=== PATIENT | male | born 1955 | race Caucasian/White ===

== ENCOUNTER 2024-09-06 08:55 | Outpatient (RCR) | payer OTHER, SELFPAY ==
--- NOTE | 2024-09-06 09:32 | CTCFLWUP_ITS ---
[facility] [address] [place], [place] [address] FOLLOW-UP NOTE Date: 09/06/2024 MR#: [id number] Name: NEIL LUCERO : 1955 Dx: C83.30 Diffuse large B-cell lymphoma, unspecified site Identification. 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 Underwent 6 cycles of R-CHOP chemo completed 11/28/2021. Complete XRT to oropharyngeal region 3060 cGy 02/12/2022. Most recent PET scan 03/09/2024 stable carotid lymphadenopathy compared to prior PET of 07/03/2022 with no interval hypermetabolic lymphadenopathy. Examined patient's oral cavity neck with no sign of recurrence.\ I will see patient again in 6 months time. Electronically signed by: Richard Dixon M.D. 09/06/2024 9:30 AM
== END 2024-09-26 23:59 | disposition home or self-care (01) ==
LOC: SCTC 08:55
PROVIDERS: PCP Family Medicine; Referring Provider Family Medicine; Visit Provider Radiology Therapeutic Radiology
DX: Z08 Encounter for follow-up examination after completed treatment for malignant neoplasm (principal); Z85.72 Personal history of non-Hodgkin lymphomas; Z92.21 Personal history of antineoplastic chemotherapy; Z92.3 Personal history of irradiation
CPT/HCPCS: 99213; G0463

== ENCOUNTER 2024-11-02 10:50 | Outpatient (RCR) | payer OTHER, SELFPAY | END 2024-11-24 23:59 | disposition home or self-care (01) | LOC: SCTC 10:50 | PROVIDERS: PCP Pediatrics; Referring Provider Pediatrics; Visit Provider Nurse Practitioner Family | DX: Z08 Encounter for follow-up examination after completed treatment for malignant neoplasm (principal); Z85.72 Personal history of non-Hodgkin lymphomas; Z92.3 Personal history of irradiation; Z92.21 Personal history of antineoplastic chemotherapy | CPT/HCPCS: 99212; G0463 ==

== ENCOUNTER 2024-11-30 15:00 | Outpatient (RCR) | payer OTHER, SELFPAY | END 2024-12-25 23:59 | disposition home or self-care (01) | LOC: SCTC 15:00 | PROVIDERS: PCP Pediatrics; Referring Provider Pediatrics; Visit Provider Nurse Practitioner Family | DX: Z08 Encounter for follow-up examination after completed treatment for malignant neoplasm (principal); Z85.72 Personal history of non-Hodgkin lymphomas; Z92.3 Personal history of irradiation; Z92.21 Personal history of antineoplastic chemotherapy; D75.1 Secondary polycythemia; G47.33 Obstructive sleep apnea (adult) (pediatric); Z99.89 Dependence on other enabling machines and devices | CPT/HCPCS: 99212; G0463 ==

== ENCOUNTER → 2024-12-04 | Outpatient (CLI) | payer OTHER, SELFPAY ==
[2024-12-04 10:28] LABS: Misc Send Out* See Sep Rpt
[2024-12-04 11:28] LABS: Basophils % (Auto) 0 % (0-2.5); Eosinophils # (Auto) 0.2 Thou/mm3 (0.0-0.5); Eosinophils % (Auto) 2 % (0-10); Hematocrit 51.7 % (41.0-53.0); Hemoglobin 17.5 g/dL (13.5-16.0); Immature Granulocytes % (Auto) 0 % (0-0); Immature Granulocytes Auto 0.02 Thou/mm3 (0.00-0.00); Lymphocytes # (Auto) 1.1 Thou/mm3 (1.0-4.8); Lymphocytes % (Auto) 13 % (10-50); Mean Corpuscular HGB Conc 33.8 g/dl (31.0-37.0); Mean Corpuscular Hemoglobin 29.9 pg (25.0-35.0); Mean Corpuscular Volume 88 fL (80-100); Monocytes # (Auto) 0.6 Thou/mm3 (0.0-0.8); Monocytes % (Auto) 7 % (0-12); Neutrophils # (Auto) 6.6 Thou/mm3 (1.8-7.7); Neutrophils % (Auto) 78 % (37-80); Nucleated Red Blood Cell % 0 /100 WBC (0); Platelet Count 234 Thou/mm3 (140-440); RDW Standard Deviation 42.1 fL (35.1-43.9); Red Blood Count 5.86 Miln/mm3 (4.50-5.90); White Blood Count 8.5 Thou/mm3 (3.8-10.6)
[2024-12-04 12:05] LABS: Alanine Aminotransferase 21 U/L (10-49); Albumin, Serum 4.4 gm/dL (3.4-4.8); Albumin/Globulin Ratio 2.3 (1.2-2.2); Alkaline Phosphatase 96 U/L (46-116); Anion Gap 7 (7-16); Aspartate Amino Transferase 24 U/L (0-34); BUN/Creatinine Ratio 19 Ratio (12-20); Bilirubin,Total 0.7 mg/dL (0.3-1.2); Blood Urea Nitrogen 19 mg/dL (9-23); Calcium 9.7 mg/dL (8.3-10.6); Calcium (Corrected) 9.7 mg/dL (8.5-10.1); Carbon Dioxide 24.7 mMol/L (20.0-31.0); Chloride 108 mMol/L (98-107); Globulin 1.9 gm/dL (2.3-3.5); Glucose 102 mg/dL (74-106); Osmolality,Calculated 281 (275-295); Potassium 4.6 mMol/L (3.4-5.1); Sodium 140 mMol/L (136-145); Total Protein 6.3 gm/dL (5.7-8.2); eGFR > 60 See Note
[2024-12-11 07:16] LABS: Erythropoietin (EPO)* 12.6 mIU/mL (2.6-18.5)
== END | disposition home or self-care (01) ==
PROVIDERS: PCP Family Medicine; Referring Provider Nurse Practitioner Family; Visit Provider Nurse Practitioner Family
DX: C83.30 Diffuse large B-cell lymphoma, unspecified site (principal)
CPT/HCPCS: 36415; 80053; 81219; 81270; 81279; 81339; 82668; 85025

== ENCOUNTER → 2025-01-04 | Outpatient (CLI) | payer OTHER, SELFPAY ==
--- NOTE | 2025-01-04 09:00 | XR_ITS ---
Examination: CT chest with intravenous contrast CT abdomen with intravenous contrast CT pelvis with intravenous contrast 2-D coronal and sagittal reconstructions Time of exam: January 04, 2025 0901 hrs. Comparison PET/CT scan March 09, 2024, CT chest August 18, 2023 Indications: Diagnosis diffuse large B-cell lymphoma 2020 diagnosis CTDI: vol (mGy) : 10.7 DLP: (mGycm): 870 Technique: Multiple axial images of the chest, abdomen and pelvis with intravenous contrast, 3.0 mm slice thickness. Images obtained post intravenous injection Isovue 370 60 cc. 2-D sagittal and coronal reconstructions. Low dose protocols were performed. One or more of the following dose reduction techniques were used; automated exposure control, adjustment of the mA and/or KV according to patient size, use of iterative reconstruction technique. Findings: No thoracic aortic aneurysm dilatation No pulmonary artery emboli on this non-CTA study No paratracheal tracheobronchial or bronchopulmonary adenopathy Interval 5 mm soft pulmonary nodule posterior right lung image 159 Interval 4 mm pulmonary nodule posterior right lung image 178 Interval 5 mm soft pulmonary nodule posterior right lung image 179 Pulmonary nodule right middle lobe measures 3 mm compared to 2 mm on liver 2022 8 mm soft pulmonary nodule posterior right lung image 187 10 mm soft pulmonary nodule right lower lobe image 243 No pneumonia or pulmonary edema No interval liver or splenic lesions Absent gallbladder No pancreatic or adrenal mass 30 mm anterior left renal cyst No hydronephrosis No interval abdominal or pelvic lymphadenopathy Normal appendix Colonic diverticulosis Normal seminal vesicles No prostatomegaly No bladder mass Fat-containing: Hernias Moderate osteopenia with diffuse advanced lumbar degenerative disc disease Impression: Interval multiple bilateral pulmonary nodules as above compared to CT chest August 18, 2023, with this study as baseline recommend 6 month continued follow-up CT chest without contrast No interval recurrent tumor in the abdomen or pelvis
== END | disposition home or self-care (01) ==
PROVIDERS: PCP Family Medicine; Referring Provider Nurse Practitioner Family; Visit Provider Nurse Practitioner Family
DX: R91.8 Other nonspecific abnormal finding of lung field (principal); C83.30 Diffuse large B-cell lymphoma, unspecified site
CPT/HCPCS: 71260; 74177; A4649; Q9967

== ENCOUNTER 2025-01-23 14:18 | Outpatient (RCR) | payer OTHER, SELFPAY ==
[2024-12-26 15:11] LABS: Basophils % (Auto) 0 % (0-2.5); Eosinophils # (Auto) 0.2 Thou/mm3 (0.0-0.5); Eosinophils % (Auto) 3 % (0-10); Hematocrit 48.1 % (41.0-53.0); Hemoglobin 16.7 g/dL (13.5-16.0); Immature Granulocytes % (Auto) 0 % (0-0); Immature Granulocytes Auto 0.01 Thou/mm3 (0.00-0.00); Lymphocytes # (Auto) 1.2 Thou/mm3 (1.0-4.8); Lymphocytes % (Auto) 16 % (10-50); Mean Corpuscular HGB Conc 34.7 g/dl (31.0-37.0); Mean Corpuscular Hemoglobin 29.9 pg (25.0-35.0); Mean Corpuscular Volume 86 fL (80-100); Monocytes # (Auto) 0.6 Thou/mm3 (0.0-0.8); Monocytes % (Auto) 8 % (0-12); Neutrophils # (Auto) 5.3 Thou/mm3 (1.8-7.7); Neutrophils % (Auto) 72 % (37-80); Nucleated Red Blood Cell % 0 /100 WBC (0); Platelet Count 243 Thou/mm3 (140-440); RDW Standard Deviation 40.9 fL (35.1-43.9); Red Blood Count 5.58 Miln/mm3 (4.50-5.90); White Blood Count 7.4 Thou/mm3 (3.8-10.6)
[2025-01-02 14:18] LABS: Basophils % (Auto) 0 % (0-2.5); Eosinophils # (Auto) 0.2 Thou/mm3 (0.0-0.5); Eosinophils % (Auto) 2 % (0-10); Hematocrit 45.3 % (41.0-53.0); Hemoglobin 15.8 g/dL (13.5-16.0); Immature Granulocytes % (Auto) 0 % (0-0); Immature Granulocytes Auto 0.02 Thou/mm3 (0.00-0.00); Lymphocytes # (Auto) 1.1 Thou/mm3 (1.0-4.8); Lymphocytes % (Auto) 13 % (10-50); Mean Corpuscular HGB Conc 34.9 g/dl (31.0-37.0); Mean Corpuscular Hemoglobin 30.4 pg (25.0-35.0); Mean Corpuscular Volume 87 fL (80-100); Monocytes # (Auto) 0.8 Thou/mm3 (0.0-0.8); Monocytes % (Auto) 9 % (0-12); Neutrophils # (Auto) 6.2 Thou/mm3 (1.8-7.7); Neutrophils % (Auto) 75 % (37-80); Nucleated Red Blood Cell % 0 /100 WBC (0); Platelet Count 234 Thou/mm3 (140-440); RDW Standard Deviation 40.5 fL (35.1-43.9); White Blood Count 8.2 Thou/mm3 (3.8-10.6)
[2025-01-09 14:49] LABS: Basophils % (Auto) 0 % (0-2.5); Eosinophils # (Auto) 0.3 Thou/mm3 (0.0-0.5); Eosinophils % (Auto) 4 % (0-10); Hematocrit 44.9 % (41.0-53.0); Hemoglobin 15.7 g/dL (13.5-16.0); Immature Granulocytes % (Auto) 0 % (0-0); Immature Granulocytes Auto 0.03 Thou/mm3 (0.00-0.00); Lymphocytes # (Auto) 1.2 Thou/mm3 (1.0-4.8); Lymphocytes % (Auto) 17 % (10-50); Mean Corpuscular Volume 86 fL (80-100); Monocytes # (Auto) 0.4 Thou/mm3 (0.0-0.8); Monocytes % (Auto) 6 % (0-12); Neutrophils # (Auto) 5.1 Thou/mm3 (1.8-7.7); Neutrophils % (Auto) 73 % (37-80); Nucleated Red Blood Cell % 0 /100 WBC (0); Platelet Count 267 Thou/mm3 (140-440); RDW Standard Deviation 39.6 fL (35.1-43.9); Red Blood Count 5.24 Miln/mm3 (4.50-5.90)
[2025-01-15 15:11] LABS: Basophils # (Auto) 0.1 Thou/mm3 (0.0-0.2); Basophils % (Auto) 1 % (0-2.5); Eosinophils # (Auto) 0.1 Thou/mm3 (0.0-0.5); Eosinophils % (Auto) 1 % (0-10); Hematocrit 45.5 % (41.0-53.0); Hemoglobin 16.2 g/dL (13.5-16.0); Immature Granulocytes % (Auto) 0 % (0-0); Immature Granulocytes Auto 0.02 Thou/mm3 (0.00-0.00); Lymphocytes # (Auto) 1.2 Thou/mm3 (1.0-4.8); Lymphocytes % (Auto) 16 % (10-50); Mean Corpuscular HGB Conc 35.6 g/dl (31.0-37.0); Mean Corpuscular Hemoglobin 30.2 pg (25.0-35.0); Mean Corpuscular Volume 85 fL (80-100); Monocytes # (Auto) 0.7 Thou/mm3 (0.0-0.8); Monocytes % (Auto) 9 % (0-12); Neutrophils # (Auto) 5.6 Thou/mm3 (1.8-7.7); Neutrophils % (Auto) 73 % (37-80); Nucleated Red Blood Cell % 0 /100 WBC (0); Platelet Count 277 Thou/mm3 (140-440); RDW Standard Deviation 40.3 fL (35.1-43.9); Red Blood Count 5.37 Miln/mm3 (4.50-5.90); White Blood Count 7.7 Thou/mm3 (3.8-10.6)
[2025-01-23 14:51] LABS: Basophils % (Auto) 0 % (0-2.5); Eosinophils # (Auto) 0.1 Thou/mm3 (0.0-0.5); Eosinophils % (Auto) 1 % (0-10); Hematocrit 46.6 % (41.0-53.0); Hemoglobin 16.4 g/dL (13.5-16.0); Immature Granulocytes % (Auto) 0 % (0-0); Immature Granulocytes Auto 0.02 Thou/mm3 (0.00-0.00); Lymphocytes # (Auto) 1.1 Thou/mm3 (1.0-4.8); Lymphocytes % (Auto) 14 % (10-50); Mean Corpuscular HGB Conc 35.2 g/dl (31.0-37.0); Mean Corpuscular Hemoglobin 30.8 pg (25.0-35.0); Mean Corpuscular Volume 87 fL (80-100); Monocytes # (Auto) 0.6 Thou/mm3 (0.0-0.8); Monocytes % (Auto) 7 % (0-12); Neutrophils # (Auto) 6.1 Thou/mm3 (1.8-7.7); Neutrophils % (Auto) 77 % (37-80); Nucleated Red Blood Cell % 0 /100 WBC (0); Platelet Count 239 Thou/mm3 (140-440); RDW Standard Deviation 41.8 fL (35.1-43.9); Red Blood Count 5.33 Miln/mm3 (4.50-5.90); White Blood Count 7.9 Thou/mm3 (3.8-10.6)
== END 2025-01-24 23:59 | disposition home or self-care (01) ==
LOC: SCTC 14:18
PROVIDERS: PCP Family Medicine; Referring Provider Nurse Practitioner Family; Visit Provider Nurse Practitioner Family
DX: D75.1 Secondary polycythemia (principal); Z85.72 Personal history of non-Hodgkin lymphomas; Z92.3 Personal history of irradiation; G47.33 Obstructive sleep apnea (adult) (pediatric); Z99.89 Dependence on other enabling machines and devices
CPT/HCPCS: 36415; 85025; 99195

== ENCOUNTER 2025-03-21 10:53 | Outpatient (RCR) | payer OTHER, SELFPAY ==
[2025-02-28 15:05] LABS: Basophils % (Auto) 0 % (0-2.5); Eosinophils # (Auto) 0.1 Thou/mm3 (0.0-0.5); Eosinophils % (Auto) 1 % (0-10); Hematocrit 49.5 % (41.0-53.0); Hemoglobin 16.9 g/dL (13.5-16.0); Immature Granulocytes % (Auto) 0 % (0-0); Immature Granulocytes Auto 0.01 Thou/mm3 (0.00-0.00); Lymphocytes # (Auto) 1.1 Thou/mm3 (1.0-4.8); Lymphocytes % (Auto) 13 % (10-50); Mean Corpuscular HGB Conc 34.1 g/dl (31.0-37.0); Mean Corpuscular Hemoglobin 30.3 pg (25.0-35.0); Mean Corpuscular Volume 89 fL (80-100); Monocytes # (Auto) 0.6 Thou/mm3 (0.0-0.8); Monocytes % (Auto) 7 % (0-12); Neutrophils # (Auto) 6.1 Thou/mm3 (1.8-7.7); Neutrophils % (Auto) 78 % (37-80); Nucleated Red Blood Cell % 0 /100 WBC (0); Platelet Count 229 Thou/mm3 (140-440); RDW Standard Deviation 41.9 fL (35.1-43.9); Red Blood Count 5.57 Miln/mm3 (4.50-5.90); White Blood Count 7.8 Thou/mm3 (3.8-10.6)
[2025-03-21 11:39] LABS: Basophils % (Auto) 0 % (0-2.5); Eosinophils # (Auto) 0.2 Thou/mm3 (0.0-0.5); Eosinophils % (Auto) 2 % (0-10); Hematocrit 43.4 % (41.0-53.0); Hemoglobin 15.3 g/dL (13.5-16.0); Immature Granulocytes % (Auto) 0 % (0-0); Immature Granulocytes Auto 0.01 Thou/mm3 (0.00-0.00); Lymphocytes % (Auto) 14 % (10-50); Mean Corpuscular HGB Conc 35.3 g/dl (31.0-37.0); Mean Corpuscular Hemoglobin 30.3 pg (25.0-35.0); Mean Corpuscular Volume 86 fL (80-100); Monocytes # (Auto) 0.5 Thou/mm3 (0.0-0.8); Monocytes % (Auto) 7 % (0-12); Neutrophils # (Auto) 5.2 Thou/mm3 (1.8-7.7); Neutrophils % (Auto) 76 % (37-80); Nucleated Red Blood Cell % 0 /100 WBC (0); Platelet Count 239 Thou/mm3 (140-440); RDW Standard Deviation 41.4 fL (35.1-43.9); Red Blood Count 5.05 Miln/mm3 (4.50-5.90); White Blood Count 6.9 Thou/mm3 (3.8-10.6)
== END 2025-03-26 23:59 | disposition home or self-care (01) ==
LOC: SCTC 10:53
PROVIDERS: Nurse Practitioner Family; PCP Family Medicine; Referring Provider Family Medicine; Visit Provider Radiology Therapeutic Radiology
DX: Z08 Encounter for follow-up examination after completed treatment for malignant neoplasm (principal); Z85.72 Personal history of non-Hodgkin lymphomas; Z92.21 Personal history of antineoplastic chemotherapy; Z92.3 Personal history of irradiation; R91.8 Other nonspecific abnormal finding of lung field; D75.1 Secondary polycythemia
CPT/HCPCS: 36415; 85025; 99195; 99212; G0463

== ENCOUNTER 2025-04-18 10:52 | Outpatient (RCR) | payer OTHER, SELFPAY ==
[2025-04-18 11:22] LABS: Basophils # (Auto) 0.1 Thou/mm3 (0.0-0.2); Basophils % (Auto) 1 % (0-2.5); Eosinophils # (Auto) 0.2 Thou/mm3 (0.0-0.5); Eosinophils % (Auto) 3 % (0-10); Hematocrit 46.9 % (41.0-53.0); Hemoglobin 16.3 g/dL (13.5-16.0); Immature Granulocytes Auto 0.01 Thou/mm3 (0.00-0.00); Lymphocytes # (Auto) 1.2 Thou/mm3 (1.0-4.8); Lymphocytes % (Auto) 19 % (10-50); Mean Corpuscular HGB Conc 34.8 g/dl (31.0-37.0); Mean Corpuscular Hemoglobin 29.5 pg (25.0-35.0); Mean Corpuscular Volume 85 fL (80-100); Monocytes # (Auto) 0.6 Thou/mm3 (0.0-0.8); Monocytes % (Auto) 9 % (0-12); Neutrophils # (Auto) 4.2 Thou/mm3 (1.8-7.7); Neutrophils % (Auto) 68 % (37-80); Nucleated Red Blood Cell # 0.00 Thou/mm3 (0.00-0.00); Nucleated Red Blood Cell % 0 /100 WBC (0); Platelet Count 225 Thou/mm3 (140-440); RDW Standard Deviation 40.2 fL (35.1-43.9); Red Blood Count 5.53 Miln/mm3 (4.50-5.90); White Blood Count 6.2 Thou/mm3 (3.8-10.6)
== END 2025-04-26 23:59 | disposition home or self-care (01) ==
LOC: SCTC 10:52
PROVIDERS: Internal Medicine Hematology & Oncology; PCP Pediatrics; Referring Provider Pediatrics; Visit Provider Radiology Therapeutic Radiology
DX: C83.31 Diffuse large B-cell lymphoma, lymph nodes of head, face, and neck (principal); Z92.3 Personal history of irradiation
CPT/HCPCS: 36415; 85025

== ENCOUNTER 2025-05-02 10:48 | Outpatient (RCR) | payer OTHER, SELFPAY ==
[2025-05-02 11:28] LABS: Basophils # (Auto) 0.0 Thou/mm3 (0.0-0.2); Basophils % (Auto) 1 % (0-2.5); Eosinophils # (Auto) 0.2 Thou/mm3 (0.0-0.5); Eosinophils % (Auto) 3 % (0-10); Hematocrit 50.3 % (41.0-53.0); Hemoglobin 16.7 g/dL (13.5-16.0); Immature Granulocytes Auto 0.01 Thou/mm3 (0.00-0.00); Lymphocytes # (Auto) 1.0 Thou/mm3 (1.0-4.8); Lymphocytes % (Auto) 16 % (10-50); Mean Corpuscular HGB Conc 33.2 g/dl (31.0-37.0); Mean Corpuscular Hemoglobin 28.9 pg (25.0-35.0); Mean Corpuscular Volume 87 fL (80-100); Monocytes # (Auto) 0.5 Thou/mm3 (0.0-0.8); Monocytes % (Auto) 8 % (0-12); Neutrophils # (Auto) 4.5 Thou/mm3 (1.8-7.7); Neutrophils % (Auto) 73 % (37-80); Nucleated Red Blood Cell # 0.00 Thou/mm3 (0.00-0.00); Nucleated Red Blood Cell % 0 /100 WBC (0); Platelet Count 245 Thou/mm3 (140-440); RDW Standard Deviation 41.2 fL (35.1-43.9); Red Blood Count 5.77 Miln/mm3 (4.50-5.90); White Blood Count 6.1 Thou/mm3 (3.8-10.6)
[2025-05-03 12:10] LABS: Cocci Serology, IgM Negative (Negative)
[2025-05-04 12:34] LABS: Cocci Serology, IgG Negative (Negative)
--- NOTE | 2025-05-07 00:51 | CTCFLWUP_ITS ---
Patient: SACHIN LUCERO : 1955 Page 9 of 10 FOLLOW UP NOTE DATE OF SERVICE: 04/30/2025 NAME: SACHIN LUCERO ACCOUNT: [id number] : 1955 AGE: 69 INTERVAL HISTORY: Sachin Lucero, a male with elevated hemoglobin, presented for follow-up of polycythemia and pulmonary nodules. His history includes polycythemia and pulmonary nodules identified on CT scan in December 2024. Despite increased water intake, his hemoglobin remained elevated at 50. Management included continuing scheduled phlebotomy treatments, emphasizing hydration, scheduling a follow-up CT scan in June, and ordering QuantiFERON-TB Gold and valley fever tests to evaluate the pulmonary nodules. Subjective Chief Complaint Follow-up for high hemoglobin levels, fatigue from moving History of Present Illness Sachin Lucero, a male patient with a history of elevated hemoglobin, presents for follow-up. He reports feeling good but mentions being tired from helping his daughter move recently. Mr. Lucero states he has been drinking more water since his last visit, as previously advised. He denies any history of smoking. The patient reports completing a sleep study, though the results are not explicitly discussed. Mr. Lucero inquires about his blood work and the need for continued phlebotomies, indicating ongoing management of his elevated hemoglobin. The patient's living situation is briefly discussed, with Mr. Lucero mentioning that he resides in [place], which he describes as a nice, quiet, small town. This environmental context is relevant given the clinician's mention of the area's air quality issues due to pesticides, dust, and pollen, which could potentially impact respiratory health. Review of Systems General: Positive for fatigue. Objective Laboratory, Imaging, and Diagnostic Test Results - Date: Not specified - Hemoglobin: 50 (high) - Previous results: - Hemoglobin: Within normal range (date not specified) - CT scan (December 2024): Pulmonary nodules noted ONCOLOGY HISTORY: DIAGNOSIS: Diffuse large B-cell lymphoma, unspecified site [ICD10] C83.30 Diffuse large B-cell lymphoma, unspecified site [ICD10] C83.30 DATE OF DIAGNOSIS: STAGE/TNM: TREATMENT HISTORY: Care?Plan Start?Date Cycle Day Intent CHOP?+?Rituximab?375?mg/m*2?nain 09/04/2021 1 21 Curative?(primary) HISTORY OF PRESENT ILLNESS: Sachin Lucero is a 69-year-old ENG speaking male with following oncology history. June 04, 2021: Patient started feeling sore throat. He has seen his primary care doctor who referred him to Dr. Perez, ENT surgeon in [place]. 07/30/2021: MRI of the neck with and without contrast? 08/07/2021: Patient had oropharyngeal mass biopsy. 08/27/2021: PET CT scan? 09/04/2021?12/18/2021: Mr. Lucero was treated with 6 cycles of R-CHOP chemotherapy. 01/10/2022: PET/CT scan? 01/21/2022 - 02/12/2022: Mr. Lucero received 3060 cGy radiation in 17 fractions to head and neck. 07/04/2022: PET/CT scan? 06/03/2023: MRI of the brain, face and neck with and without contrast 08/19/2023: CT scan of the chest without contrast 03/09/2024: PET/CT scan OTHER MEDICAL HISTORY/CONDITIONS: FAMILY HISTORY: SOCIAL HISTORY: MEDICATIONS: 1. azithromycin - 250 mg 1 tab Daily 2. benazepril - 20 mg 1 tab Daily 3. Compazine - 10 mg 1 tab Three times a day 4. hydroCHLOROthiazide - 12.5 mg 1 tab Daily 5. metFORMIN - 500 mg 1 tab Daily 6. pravastatin - 40 mg 1 tab Daily Medications Last Reconciled by Lizy Durand MD on 04/30/2025 ALLERGIES: No Known Drug Allergies REVIEW OF SYSTEMS: A complete 14-point review of systems was performed and is negative except as noted in interval history. PHYSICAL EXAMINATION: VITAL SIGNS: Temperature?96.2, B/P?156/95, Oxygen?Saturation?95% Weight?218?lbs (Change?since?04/18/25:?-0.8?lbs) PAIN: 0 - No pain Not done, visit was telemedicine LABORATORY DATA: I have personally reviewed and interpreted each of the patient?s relevant lab tests, abnormal findings are below: Date 02/28/25 03/21/25 04/18/25 05/02/25 ??WHITE?BLOOD?COUNT?(Thou/mm3) 7.8 6.9 6.2 6.1 ??RED?BLOOD?COUNT?(Miln/mm3) 5.57 5.05 5.53 5.77 ??HEMOGLOBIN?(gm/dl) 16.9?H 15.3 16.3?H 16.7?H ??HEMATOCRIT?(%) 49.5 43.4 46.9 50.3 ??PLATELET?COUNT?(Thou/mm3) 229 239 225 245 ??NEUTROPHILS?%,?AUTO?(%) 78 76 68 73 ??LYMPH?%,?AUTO?(%) 13 14 19 16 ??NEUTROPHILS,?AUTO?(Thou/mm3) 6.1 5.2 4.2 4.5 ASSESSMENT/PLAN: 1. Stage II bulky diffuse large B-cell lymphoma of the oropharynx (08/07/2021). High Ki-67. FISH testing is negative MYC, IGH, BCL2 and BCL6. Presented as a large mass in the month with bilateral lymphadenopathy. S/p 6 cycles of R-CHOP chemotherapy (09/04/2021 - 12/18/2021) S/p radiation therapy (01/21/2022 - 02/12/2022) PET CT scan done on 03/09/2024 negative for hypermetabolic oropharyngeal mass as described above No clinical evidence of recurrence of his lymphoma. Polycythemia Assessment: Patient's hemoglobin is currently elevated at 50, despite previous improvement. This recurrent elevation suggests ongoing polycythemia, potentially exacerbated by inadequate hydration. The patient reports increased water intake since previous recommendations, but this has not sufficiently controlled the condition. Given the risks associated with polycythemia, including stroke due to blood hyperviscosity, continued management is necessary. Plan: - Continue phlebotomy treatments - Patient to attend scheduled phlebotomy on Wednesday - Reassess need for subsequent phlebotomy (scheduled for the ) based on Wednesday's results - Emphasize importance of adequate hydration - Monitor hemoglobin levels closely Pulmonary Nodules Assessment: Patient has a history of pulmonary nodules identified on CT scan in December. Given the patient's non-smoking status, these nodules may be related to environmental factors such as pesticides, dust, and pollen exposure in the local area. Follow-up imaging is necessary to monitor the progression or resolution of these nodules. Plan: - Schedule follow-up CT scan in June - Order QuantiFERON-TB Gold test to rule out tuberculosis - Order valley fever test Sleep Disorder Assessment: Patient reports having completed a sleep study. The results suggest potential improvement in sleep quality, though the timeline for improvement is expected to be gradual. Plan: - Continue current sleep management plan - Monitor progress and reassess as needed- Hematocrit: Mentioned as a monitored value, with 45 and 48 as reference points ORDERS: Order # Description [id number] CT Scan + Chest + With W/O Contrast [id number] QuantiFERON-TB Gold Plus ([facility] TEST:[id number] CPT: 87667) + Antibody; Coccidioides Immitis [id number] Follow Up 6 Month RETURN TO CLINIC: I reviewed the diagnosis, prognosis, and recommended treatment/procedure options with the patient (and/or their legal dental detail representative), including the potential benefits, risks, side effects and alternative therapies. We also discussed the option of no treatment and the possibility of clinical trial participation, if applicable. All questions were addressed, and they demonstrated understanding. They provided informed consent to proceed with the proposed plan of care. BILLING AND COMPLIANCE: I reviewed external records from providers outside my specialty as summarized above. I spent a total of 50 minutes on this patient?s care on the day of their visit excluding time spent related to any billed procedures. This time includes time spent with the patient as well as time spent documenting in the medical record, reviewing patients records and tests, obtaining history, placing orders, communicating with other healthcare professionals, counseling the patient, family or caregiver, and/or care coordination for the diagnoses above. Electronically Signed by: Evaristo Lynch MD T: 12:49 AM CC: Tarik? PCP: Matt Woodward Referring: Matt Woodward This document was completed utilizing speech recognition software. Grammatical errors, random word insertions, pronoun errors, and incomplete sentences are an occasional consequence of this system due to software limitations, ambient noise, and hardware issues. Any formal questions or concerns about the content, text or information contained within the body of this dictation should be directly addressed to the provider for clarification.
== END 2025-05-27 23:59 | disposition home or self-care (01) ==
LOC: SCTC 10:48
PROVIDERS: PCP Pediatrics; Referring Provider Pediatrics; Visit Provider Internal Medicine Hematology & Oncology
DX: D75.1 Secondary polycythemia (principal); Z85.72 Personal history of non-Hodgkin lymphomas; R91.8 Other nonspecific abnormal finding of lung field; G47.9 Sleep disorder, unspecified
CPT/HCPCS: 85025; 86331; 86480; 86635; 86850; 86900; 86901; 99195; 99212; G0463

== ENCOUNTER 2025-06-04 10:58 | Outpatient (RCR) | payer OTHER, SELFPAY ==
[2025-06-04 11:39] LABS: Basophils # (Auto) 0.0 Thou/mm3 (0.0-0.2); Basophils % (Auto) 1 % (0-2.5); Eosinophils # (Auto) 0.1 Thou/mm3 (0.0-0.5); Eosinophils % (Auto) 2 % (0-10); Hematocrit 45.7 % (41.0-53.0); Hemoglobin 15.2 g/dL (13.5-16.0); Immature Granulocytes Auto 0.01 Thou/mm3 (0.00-0.00); Lymphocytes # (Auto) 1.2 Thou/mm3 (1.0-4.8); Lymphocytes % (Auto) 19 % (10-50); Mean Corpuscular HGB Conc 33.3 g/dl (31.0-37.0); Mean Corpuscular Hemoglobin 28.4 pg (25.0-35.0); Mean Corpuscular Volume 85 fL (80-100); Monocytes # (Auto) 0.6 Thou/mm3 (0.0-0.8); Monocytes % (Auto) 9 % (0-12); Neutrophils # (Auto) 4.2 Thou/mm3 (1.8-7.7); Neutrophils % (Auto) 69 % (37-80); Nucleated Red Blood Cell # 0.00 Thou/mm3 (0.00-0.00); Nucleated Red Blood Cell % 0 /100 WBC (0); Platelet Count 280 Thou/mm3 (140-440); RDW Standard Deviation 40.2 fL (35.1-43.9); Red Blood Count 5.35 Miln/mm3 (4.50-5.90); White Blood Count 6.0 Thou/mm3 (3.8-10.6)
== END 2025-06-26 23:59 | disposition home or self-care (01) ==
LOC: SCTC 10:58
PROVIDERS: PCP Family Medicine; Referring Provider Family Medicine; Visit Provider Internal Medicine Hematology & Oncology
DX: D75.1 Secondary polycythemia (principal); Z85.72 Personal history of non-Hodgkin lymphomas; R91.8 Other nonspecific abnormal finding of lung field; G47.9 Sleep disorder, unspecified
CPT/HCPCS: 36415; 80053; 85025

== ENCOUNTER → 2025-06-26 | Outpatient (CLI) | payer OTHER, SELFPAY ==
[2025-06-04 14:07] LABS: Basophils # (Auto) 0.0 Thou/mm3 (0.0-0.2); Basophils % (Auto) 1 % (0-2.5); Eosinophils # (Auto) 0.2 Thou/mm3 (0.0-0.5); Eosinophils % (Auto) 2 % (0-10); Hematocrit 45.4 % (41.0-53.0); Hemoglobin 15.1 g/dL (13.5-16.0); Immature Granulocytes Auto 0.02 Thou/mm3 (0.00-0.00); Lymphocytes # (Auto) 1.5 Thou/mm3 (1.0-4.8); Lymphocytes % (Auto) 20 % (10-50); Mean Corpuscular HGB Conc 33.3 g/dl (31.0-37.0); Mean Corpuscular Hemoglobin 28.5 pg (25.0-35.0); Mean Corpuscular Volume 86 fL (80-100); Monocytes # (Auto) 0.8 Thou/mm3 (0.0-0.8); Monocytes % (Auto) 10 % (0-12); Neutrophils # (Auto) 5.2 Thou/mm3 (1.8-7.7); Neutrophils % (Auto) 68 % (37-80); Nucleated Red Blood Cell # 0.00 Thou/mm3 (0.00-0.00); Nucleated Red Blood Cell % 0 /100 WBC (0); Platelet Count 301 Thou/mm3 (140-440); RDW Standard Deviation 40.4 fL (35.1-43.9); Red Blood Count 5.29 Miln/mm3 (4.50-5.90); White Blood Count 7.7 Thou/mm3 (3.8-10.6)
[2025-06-04 14:18] LABS: Alanine Aminotransferase 18 U/L (10-49); Albumin, Serum 4.1 gm/dL (3.4-4.8); Albumin/Globulin Ratio 2.1 (1.2-2.2); Alkaline Phosphatase 106 U/L (46-116); Anion Gap 12 (7-16); Aspartate Amino Transferase 24 U/L (0-34); BUN/Creatinine Ratio 14 Ratio (12-20); Bilirubin,Total 0.6 mg/dL (0.3-1.2); Blood Urea Nitrogen 13 mg/dL (9-23); Calcium 9.7 mg/dL (8.3-10.6); Calcium (Corrected) 9.7 mg/dL (8.5-10.1); Carbon Dioxide 24.4 mMol/L (20.0-31.0); Chloride 105 mMol/L (98-107); Creatinine (Component) 0.9 mg/dL (0.6-1.3); Globulin 2.0 gm/dL (2.3-3.5); Glucose 94 mg/dL (74-106); Osmolality,Calculated 281 (275-295); Potassium 4.1 mMol/L (3.4-5.1); Sodium 141 mMol/L (136-145); Total Protein 6.1 gm/dL (5.7-8.2); eGFR > 60 See Note
--- NOTE | 2025-06-26 11:30 | XR_ITS ---
Examination: CT chest with intravenous contrast CT chest without intravenous contrast 2-D reconstructions Date and time of exam:June 26, 2025, 1337 hours, comparison CT chest January 04, 2025, PET/CT scan March 09, 2024 INDICATIONS: Diagnosis diffuse large B-cell lymphoma unspecified site, completed chemotherapy radiation therapy restaging CTDI:vol (mGy) 16.2 DLP: (mGycm) 720 Technique: Multiple axial sections of the thorax have been obtained. 3 mm slice thickness, from the hemidiaphragms to above the apices of the lungs. Mediastinal and lung density settings have been obtained. Intravenous contrast administered 60 cc Isovue-370. Noncontrast images have also been obtained. 2-D sagittal coronal images obtained. Low dose protocols were performed. One or more of the following dose reduction techniques were used; automated exposure control, adjustment of the mA and/or KV according to patient size, use of iterative reconstruction technique. Findings: Thyroid lobes exhibit symmetry The larynx appears normal No thoracic aortic aneurysm dilatation Pulmonary artery segments are not enlarged No pathologic mediastinal lymphadenopathy 10 mm pulmonary nodule left upper lobe image 80 2 mm pulmonary nodule anterior segment right upper lobe image 126 4 mm pulmonary nodule anterior segment right upper lobe image 168 2 mm pulmonary nodule right lower lobe image 220 No pneumonia or pulmonary edema No pleural disease No visualized liver splenic lesion Absent gallbladder No pancreatic or adrenal mass Perinephric stranding Partial visualization 25 mm left renal cyst No visualized abdominal lymphadenopathy Negative for ascites Moderate osteopenia Moderate to advanced diffuse thoracic and lumbar degenerative disc disease Sternal segments ribs appear intact IMPRESSION: Noncalcified pulmonary nodules as above, suggest continued 6 month follow-up CT chest without contrast
== END | disposition home or self-care (01) ==
PROVIDERS: PCP Family Medicine; Referring Provider Internal Medicine Hematology & Oncology; Visit Provider Internal Medicine Hematology & Oncology
DX: R91.8 Other nonspecific abnormal finding of lung field (principal); C83.30 Diffuse large B-cell lymphoma, unspecified site
CPT/HCPCS: 71270; A4649; Q9967

== ENCOUNTER 2025-07-09 14:18 | Outpatient (RCR) | payer OTHER, SELFPAY ==
[2025-07-09 14:59] LABS: Basophils # (Auto) 0.0 Thou/mm3 (0.0-0.2); Basophils % (Auto) 1 % (0-2.5); Eosinophils # (Auto) 0.2 Thou/mm3 (0.0-0.5); Eosinophils % (Auto) 3 % (0-10); Hematocrit 44.1 % (41.0-53.0); Hemoglobin 14.5 g/dL (13.5-16.0); Immature Granulocytes Auto 0.01 Thou/mm3 (0.00-0.00); Lymphocytes # (Auto) 1.3 Thou/mm3 (1.0-4.8); Lymphocytes % (Auto) 22 % (10-50); Mean Corpuscular HGB Conc 32.9 g/dl (31.0-37.0); Mean Corpuscular Hemoglobin 27.7 pg (25.0-35.0); Mean Corpuscular Volume 84 fL (80-100); Monocytes # (Auto) 0.6 Thou/mm3 (0.0-0.8); Monocytes % (Auto) 10 % (0-12); Neutrophils # (Auto) 3.8 Thou/mm3 (1.8-7.7); Neutrophils % (Auto) 65 % (37-80); Nucleated Red Blood Cell # 0.00 Thou/mm3 (0.00-0.00); Nucleated Red Blood Cell % 0 /100 WBC (0); Platelet Count 238 Thou/mm3 (140-440); RDW Standard Deviation 41.2 fL (35.1-43.9); Red Blood Count 5.24 Miln/mm3 (4.50-5.90); White Blood Count 5.9 Thou/mm3 (3.8-10.6)
== END 2025-07-27 23:59 | disposition home or self-care (01) ==
LOC: SCTC 14:18
PROVIDERS: PCP Family Medicine; Referring Provider Family Medicine; Visit Provider Internal Medicine Hematology & Oncology
DX: D75.1 Secondary polycythemia (principal); R91.8 Other nonspecific abnormal finding of lung field; Z85.72 Personal history of non-Hodgkin lymphomas; G47.9 Sleep disorder, unspecified
CPT/HCPCS: 36415; 85025

== ENCOUNTER 2025-08-06 10:50 | Outpatient (RCR) | payer OTHER, SELFPAY ==
[2025-08-06 12:29] LABS: Basophils # (Auto) 0.0 Thou/mm3 (0.0-0.2); Basophils % (Auto) 1 % (0-2.5); Eosinophils # (Auto) 0.2 Thou/mm3 (0.0-0.5); Eosinophils % (Auto) 3 % (0-10); Hematocrit 47.1 % (41.0-53.0); Hemoglobin 15.6 g/dL (13.5-16.0); Immature Granulocytes Auto 0.01 Thou/mm3 (0.00-0.00); Lymphocytes # (Auto) 1.2 Thou/mm3 (1.0-4.8); Lymphocytes % (Auto) 22 % (10-50); Mean Corpuscular HGB Conc 33.1 g/dl (31.0-37.0); Mean Corpuscular Hemoglobin 28.0 pg (25.0-35.0); Mean Corpuscular Volume 84 fL (80-100); Monocytes # (Auto) 0.5 Thou/mm3 (0.0-0.8); Monocytes % (Auto) 10 % (0-12); Neutrophils # (Auto) 3.5 Thou/mm3 (1.8-7.7); Neutrophils % (Auto) 65 % (37-80); Nucleated Red Blood Cell # 0.00 Thou/mm3 (0.00-0.00); Nucleated Red Blood Cell % 0 /100 WBC (0); Platelet Count 237 Thou/mm3 (140-440); RDW Standard Deviation 43.5 fL (35.1-43.9); Red Blood Count 5.58 Miln/mm3 (4.50-5.90); White Blood Count 5.4 Thou/mm3 (3.8-10.6)
--- NOTE | 2025-08-07 21:58 | CTCFLWUP_ITS ---
Patient: SACHIN LUCERO : 1955 Page 8 of 10 FOLLOW UP NOTE DATE OF SERVICE: 07/30/2025 NAME: SACHIN LUCERO ACCOUNT: [id number] : 1955 AGE: 69 INTERVAL HISTORY: Sachin Lucero, a male with elevated hemoglobin, presented for follow-up of polycythemia and pulmonary nodules. Patient had phlebotomy completed. He still is fatigued. Patient is at goal hematocrit. Objective Laboratory, Imaging, and Diagnostic Test Results - Date: Not specified - Hemoglobin: 50 (high) - Previous results: - Hemoglobin: Within normal range (date not specified) - CT scan (December 2024): Pulmonary nodules noted ONCOLOGY HISTORY:?[facility] Hx? DIAGNOSIS: Diffuse large B-cell lymphoma, unspecified site [ICD10] C83.30 Diffuse large B-cell lymphoma, unspecified site [ICD10] C83.30 DATE OF DIAGNOSIS: 07/30/2021 STAGE/TNM: Diffuse large B-cell lymphoma TREATMENT HISTORY: Care?Plan Start?Date Cycle Day Intent CHOP?+?Rituximab?375?mg/m*2?nain 09/04/2021 1 21 Curative?(primary) HISTORY OF PRESENT ILLNESS: Sachin Lucero is a 69-year-old ENG speaking male with following oncology history. June 04, 2021: Patient started feeling sore throat. He has seen his primary care doctor who referred him to Dr. Perez, ENT surgeon in [place]. 07/30/2021: MRI of the neck with and without contrast? 08/07/2021: Patient had oropharyngeal mass biopsy. 08/27/2021: PET CT scan? 09/04/2021?12/18/2021: Mr. Lucero was treated with 6 cycles of R-CHOP chemotherapy. 01/10/2022: PET/CT scan? 01/21/2022 - 02/12/2022: Mr. Lucero received 3060 cGy radiation in 17 fractions to head and neck. 07/04/2022: PET/CT scan? 06/03/2023: MRI of the brain, face and neck with and without contrast 08/19/2023: CT scan of the chest without contrast 03/09/2024: PET/CT scan OTHER MEDICAL HISTORY/CONDITIONS: FAMILY HISTORY: ?Clone Family Hx? SOCIAL HISTORY: MEDICATIONS: 1. azithromycin - 250 mg 1 tab Daily 2. benazepril - 20 mg 1 tab Daily 3. Compazine - 10 mg 1 tab Three times a day 4. hydroCHLOROthiazide - 12.5 mg 1 tab Daily 5. metFORMIN - 500 mg 1 tab Daily 6. pravastatin - 40 mg 1 tab Daily?Pal[facility]ra Meds? Medications Last Reconciled by Lizy Durand MD on 07/30/2025 ALLERGIES: No Known Drug Allergies REVIEW OF SYSTEMS: A complete 14-point review of systems was performed and is negative except as noted in interval history. PHYSICAL EXAMINATION:?[facility] PE? VITAL SIGNS: Temperature?97.6, B/P?128/66, Oxygen?Saturation?97% Weight?213?lbs (Change?since?07/09/25:?-3.8?lbs) PAIN: 0 - No pain ECOG Performance Status: 0 - Asymptomatic and fully active Not done, visit was telemedicine LABORATORY DATA: I have personally reviewed and interpreted each of the patient?s relevant lab tests, abnormal findings are below: Date 06/04/25 07/09/25 ??WHITE?BLOOD?COUNT?(Thou/mm3) 6.0 7.7 5.9 ??RED?BLOOD?COUNT?(Miln/mm3) 5.35 5.29 5.24 ??HEMOGLOBIN?(gm/dl) 15.2 15.1 14.5 ??HEMATOCRIT?(%) 45.7 45.4 44.1 ??PLATELET?COUNT?(Thou/mm3) 280 301 238 ??NEUTROPHILS?%,?AUTO?(%) 69 68 65 ??LYMPH?%,?AUTO?(%) 19 20 22 ??NEUTROPHILS,?AUTO?(Thou/mm3) 4.2 5.2 3.8 ??GLUCOSE,RANDOM?(mg/dL) ? 94 ? ??BLOOD?UREA?NITROGEN?(mg/dL) ? 13 ? ??CREATININE?(mg/dL) ? 0.90 ? ??SODIUM?(mmol/L) ? 141 ? ??POTASSIUM?(mmol/L) ? 4.1 ? ??CHLORIDE?(mmol/L) ? 105 ? ??CrCl?(CandG)?(ml/min) ? 108.66 ? ??AST/SGOT?(Unit/L) ? 24 ? ??ALT/SGPT?(Unit/L) ? 18 ? ??ALKALINE?PHOSPHATASE?(Unit/L) ? 106 ? ??BILIRUBIN,?TOTAL?(mg/dL) ? 0.6 ? ??PROTEIN?TOTAL?(gm/dl) ? 6.1 ? ??ALBUMIN,?SERUM?(gm/dl) ? 4.1 ? ??GLOBULIN?(gm/dl) ? 2.0?L ? ??ALBUMIN/GLOBULIN?RATIO ? 2.1 ? ??CALCIUM,?SERUM?(mg/dL) ? 9.7 ? ??CALCIUM?SERUM?(CORRECTED)?(mg/dL) ? 9.7 ? ASSESSMENT/PLAN:?Cristal Lynch Assessment/Plan? 1. Stage II bulky diffuse large B-cell lymphoma of the oropharynx (08/07/2021). High Ki-67. FISH testing is negative MYC, IGH, BCL2 and BCL6. Presented as a large mass in the month with bilateral lymphadenopathy. S/p 6 cycles of R-CHOP chemotherapy (09/04/2021 - 12/18/2021) S/p radiation therapy (01/21/2022 - 02/12/2022) PET CT scan done on 03/09/2024 negative for hypermetabolic oropharyngeal mass as described above No clinical evidence of recurrence of his lymphoma. Polycythemia Assessment: Patient's hemoglobin is currently elevated at 50, despite previous improvement. This recurrent elevation suggests ongoing polycythemia, potentially exacerbated by inadequate hydration. The patient reports increased water intake since previous recommendations, but this has not sufficiently controlled the condition. Given the risks associated with polycythemia, including stroke due to blood hyperviscosity, continued management is necessary. Plan: - Continue phlebotomy treatments Mr. Lucero is at goal No JAK2 mutation Advised to use CPAP machine Pulmonary Nodules Assessment: Patient has a history of pulmonary nodules identified on CT scan in December. Given the patient's non-smoking status, these nodules may be related to environmental factors such as pesticides, dust, and pollen exposure in the local area. CT scan was completed in May 2025 and is showing noncalcified pulmonary nodules which are all less than a centimeter. Radiology recommended to do 6-month CT which will be in November 2025 Patient's QuantiFERON tuberculosis test was negative Follow-up on valley fever testing Sleep Disorder Assessment: Patient reports having completed a sleep study. The results suggest potential improvement in sleep quality, though the timeline for improvement is expected to be gradual. Plan: - Continue current sleep management plan - Monitor progress and reassess as needed- Hematocrit: Mentioned as a monitored value, with 45 and 48 as reference points ORDERS: Order # Description [id number] CBC with Auto Diff [id number] Comprehensive Metabolic Panel - 12 + CBC with Auto Diff + MD Follow Up [id number] Scan + Chest + With W/O Contrast RETURN TO CLINIC: I reviewed the diagnosis, prognosis, and recommended treatment/procedure options with the patient (and/or their legal b2b outside sales representative), including the potential benefits, risks, side effects and alternative therapies. We also discussed the option of no treatment and the possibility of clinical trial participation, if applicable. All questions were addressed, and they demonstrated understanding. They provided informed consent to proceed with the proposed plan of care. BILLING AND COMPLIANCE: I reviewed external records from providers outside my specialty as summarized above. I spent a total of 50 minutes on this patient?s care on the day of their visit excluding time spent related to any billed procedures. This time includes time spent with the patient as well as time spent documenting in the medical record, reviewing patients records and tests, obtaining history, placing orders, communicating with other healthcare professionals, counseling the patient, family or caregiver, and/or care coordination for the diagnoses above. Electronically Signed by: Evaristo Lynch MD T: 9:56 PM CC: Richard?Destiny? PCP: Adeel Woodward Referring: Adeel Woodward This document was completed utilizing speech recognition software. Grammatical errors, random word insertions, pronoun errors, and incomplete sentences are an occasional consequence of this system due to software limitations, ambient noise, and hardware issues. Any formal questions or concerns about the content, text or information contained within the body of this dictation should be directly addressed to the provider for clarification.
== END 2025-08-26 23:59 | disposition home or self-care (01) ==
LOC: SCTC 10:50
PROVIDERS: PCP Family Medicine; Referring Provider Family Medicine; Visit Provider Internal Medicine Hematology & Oncology
DX: D75.1 Secondary polycythemia (principal); R91.8 Other nonspecific abnormal finding of lung field; Z85.72 Personal history of non-Hodgkin lymphomas; G47.9 Sleep disorder, unspecified
CPT/HCPCS: 85025; 99195; 99212; G0463

== ENCOUNTER 2025-09-06 09:28 | Outpatient (RCR) | payer OTHER, SELFPAY ==
--- NOTE | 2025-09-06 10:02 | CTCFLWUP_ITS ---
[facility] [address] [place], [place] [address] FOLLOW-UP NOTE Date: 09/06/2025 MR#: [id number] Name: NEIL LUCERO : 1955 Dx: C83.30 Diffuse large B-cell lymphoma, unspecified site Identification. Patient with stage II bulky diffuse large B-cell lymphoma oropharyngeal region. Underwent 6 cycles of R-CHOP chemo completed 11/28/2021. Completed XRT to oropharyngeal region 3060 cGy 02/12/2022. PET scan 03/09/2024 stable carotid lymphadenopathy with no interval hypermetabolic lymphadenopathy. Most recent CT 06/26/2025 showed noncalcified pulmonary nodules with little change from from prior 01/04/2025. Repeat in 6 months recommended. Predictable dryness and radiation changes in the oropharynx neck region noted on exam today. No suspicious looking or feeling masses. Lungs clear. A#1. Stage II bulky diffuse large B-cell lymphoma oropharyngeal region prior chemo and radiation completed 2021. A#2. Good response clinically and on PET scan A#3. Nonspecific pulmonary nodules on recent CT, repeat will be ordered for November and I will see him in December 2025. Electronically signed by: Richard Dixon M.D. 09/06/2025 10:00 AM
== END 2025-09-26 23:59 | disposition home or self-care (01) ==
LOC: SCTC 09:28
PROVIDERS: PCP Family Medicine; Referring Provider Family Medicine; Visit Provider Radiology Therapeutic Radiology
DX: C83.31 Diffuse large B-cell lymphoma, lymph nodes of head, face, and neck (principal); R91.1 Solitary pulmonary nodule; Z92.21 Personal history of antineoplastic chemotherapy; Z92.3 Personal history of irradiation
CPT/HCPCS: 99213; G0463